=== PATIENT | female | born 1950 | race Caucasian/White ===

== ENCOUNTER → 2017-09-11 | Day surgery (SDC) | payer OTHER, MEDICARE ==
[~2017-09-11] VITALS: Ht 154.9 cm; Wt 98.9 kg
[~2017-09-11] MED LIST: ADVAIR 100-501 EACH INH; ADVAIR DISKU 11 UNIT INH; ALEVE220 MG PO; ASPIRIN CHILDRE81 MG PO; ASPIRIN EC81 M1 PO; BIOTIN5000 MC1 PO; CALCIUM600 M3 PO; CALTRATE 600600 MG PO; CHOLEST OFF450 MG PO; CHOLESTOFF PO; CHOLESTYRAMINE1 POW PO; CO Q-10300 MG PO; COQ10 IN OIL 101 SGL; COUMADIN 5 MG TA5 MG PO; DILTIAZEM 24HR240 MG PO; DILTIAZEM HCL240 MG PO; DILTIAZEM180 MG PO; DOCUSATE SODIU100 MG PO; FISH OIL 1,2001 EAC2 PO; LEVOTHYROXIN0.125 MG PO; LEVOTHYROXINE125 MCG PO; LOVAZA1 GM PO; MASON NATURAL2000 IU PO; MULTIVITAMIN1 TAB PO; NATURE S BLEND PO; OMEGA-3 1000 MG1 CAP PO; PERCOCET 325 MG1 TA2 PO; TURMERIC500 M2 PO; VITAMIN B-122500 MCG PO; VITAMIN D1000 IU PO
--- NOTE | 2017-09-11 11:50 | Operative Report ---
Operative/Inv Procedure Report Surgery Date: 09/11/17 Name of Procedure: Left partial mastectomy with wire localization and sentinel lymph node biopsy Pre-Operative Diagnosis: Left breast cancer Post-Operative Diagnosis: Same Estimated Blood Loss: scant Surgeon/Sea Captain: Bri Rodgers MD Anesthesia: laryngeal mask airway Specimens: [place] lymph node, lumpectomy, cranial margin, caudal margin, medial margin, lateral margin, deep margin, anterior margin Operative/Procedure Note Note: Patient status post a needle biopsy showing invasive breast cancer left breast. She is brought to the operating for definitive treatment. Preoperative wire localization and lymphoscintigraphy were performed and those films reviewed. She is brought to the operating room and placed supine on the table. Laryngeal mask airway was administered as well as 2 g of Ancef. 3 mL of methylene blue diluted with 2 mL of saline was injected in the retroareolar fashion. The left breast was prepped and draped in a sterile fashion using ChloraPrep. Local anesthesia 1% lidocaine mixed half percent Marcaine was given and the axilla was approached first. A transverse incision was made in the lower axilla. Clavipectoral fascia was incised and a hot lymph node was identified. This was excised and marked as sentinel lymph node. No other hot, blue, or palpable lymph nodes were identified in the axilla. Hemostasis was adequate and the fascia was closed using interrupted Vicryl sutures. Skin was closed using a running Biosyn subcutaneous color stitch. The breast was then approached. An inframammary incision was made in the medial aspect. The wire was brought into the incision and the area of concern was grasped using an Allis clamp. A lumpectomy was performed and marked for orientation using margin map. Intraoperative x-ray confirmed the presence of the clip in specimen. Additional margins were taken in the cranial, caudal, medial, lateral, deep, and skin positions. Hemostasis adequate and a 2 x 2 BioSorb Marker was fastened to the adjacent breast tissue using Maxon sutures. Deep tissue was approximated over the Marker and skin was closed using a running Biosyn subcuticular stitch. Surgical sterile dressings were applied and patient was transferred to the recovery room in satisfactory condition having tolerated the procedure well.
--- NOTE | 2017-09-12 12:14 | MAMMOGRAPHY REPORT ---
PROCEDURE: US GUIDANCE FOR BREAST PREOPERATIVE NEEDLE LOCALIZATION, LEFT MM POST NEEDLE LOCALIZATION SINGLE CC VIEW, LEFTBREAST. SPECIMEN RADIOGRAPHY. CLINICAL INFORMATION: Biopsy proved left breast carcinoma at .7-8 o'clock, 9 cm from the nipple. Preoperative needle localization is requested. COMPARISON: Prior studies done on 08/22/2017, 08/16/2017, and 08/15/2017. TECHNIQUE AND FINDINGS: The details of the procedure, as well as the risks, benefits, and alternatives to the procedure were explained to the patient in detail and all of her questions were answered, after which, written informed consent was obtained. Prior to the procedure, sonography revealed the indexed biopsy proved 0.9 cm maximum dimension, invasive ductal carcinoma at 7-8 o'clock, 9 cm from the nipple. A time-out was performed, the lesion intended for needle localization was targeted and the skin of the left breast was then prepped and draped in the usual sterile fashion. Using sonographic guidance, sterile technique and buffered 2 % lidocaine without epinephrine for local anesthesia, a 5 cm Kopan's needle was placed within the biopsy proved malignancy at 7-8 o'clock,within the left breast. The patient tolerated the procedure well. The single view mammogram further confirmed accurate placement of the wire within the intended mass. Previously placed tissue marker was also identified adjacent to the wire. The worksheet was appropriately labeled and was sent to the OR with the patient. Subsequently, following excision of the mass, the specimen radiography was performed which revealed target within the specimen with intact wire and the previously placed tissue marker within the mass. IMPRESSION: 1. Successful sonographic guided wire localization of the left breast biopsy proved invasive ductal carcinoma at 7-8 o'clock, 9 cm from the nipple. 2. Mammographic confirmation of accurate needle localization along with appropriate marking for presurgical roadmap with worksheet. 3. Final specimen radiograph confirming complete, adequate excision of the mass and removal of the previously placed tissue marker and intact wire. Results were called to Dr. Rodgers in the operating room at the time of imaging. The histology report is pending.
== END ==
LOC: STS 03:00 → CBW.IIU 07:00 → CBW.US 08:00
DX: C50.312 Malignant neoplasm of lower-inner quadrant of left female breast (principal); Z17.0 Estrogen receptor positive status [ER+]; I10 Essential (primary) hypertension; E07.9 Disorder of thyroid, unspecified
CPT/HCPCS: 76942; 77065-LT; C9728; J0690; J2001; J2250; Q9968

== ENCOUNTER 2018-04-18 09:15 | Observation (INO) | payer OTHER ==
[~2018-04-18] VITALS: Ht 154.9 cm; Wt 102.1 kg
--- NOTE | 2018-04-18 09:59 | RADIOLOGY REPORT ---
EXAMINATION: XR CHEST CLINICAL INFORMATION: Chest pain. COMPARISON: Chest done on 11/02/2016. TECHNIQUE: 2 views of the chest were obtained. FINDINGS: Both lungs are symmetrically expanded, appear clear. The cardiomediastinal silhouette is within normal limit. There is no pleural effusion present. The visualized upper abdomen is unremarkable. Multilevel degenerative spondylosis is seen in the spine. No significant change since prior study. IMPRESSION: No acute cardiopulmonary disease, unchanged since 11/02/2016.
[2018-04-18 10:02] LABS: ABSOLUTE BASOPHIL COUNT 0 /CUMM (0.0-0.2); ABSOLUTE EOSINOPHIL COUNT 0 /CUMM (0.0-0.7); ABSOLUTE GRANULOCYTE CT 11.2 /CUMM (1.4-6.5); ABSOLUTE LYMPH COUNT 0.8 /CUMM (1.2-3.4); ABSOLUTE MONOCYTE COUNT 0.4 /CUMM (0.10-0.60); BASOPHIL % 0.2 % (0.0-2.0); EOSINOPHIL % 0 % (0-5); GRANULOCYTE % 90.1 % (42.2-75.2); HEMATOCRIT 39.9 % (37-47); MEAN CORPUSCULAR HGB 33.2 PG (27.0-31.0); MEAN CORPUSCULAR HGB CONC 35.2 G/DL (33.0-37.0); MEAN CORPUSCULAR VOLUME 94.2 FL (81.0-99.0); MEAN PLATELET VOLUME 8.4 FL (7.4-10.4); PLATELET COUNT 280 /CUMM (130-400); RBC DISTRIBUTION WIDTH 12.8 % (11.5-14.5); RED BLOOD CELL CT 4.24 /CUMM (4.20-5.40); WHITE BLOOD CELL COUNT 12.4 /CUMM (4.8-10.8)
--- NOTE | 2018-04-18 11:25 | ED CARDIAC/CP/PALPITATIONS ---
History of Present Illness General Chief Complaint: Chest Pain Stated Complaint: CHEST PAIN Source: patient Exam Limitations: no limitations Vital Signs & Intake/Output Vital Signs & Intake/Output Vital Signs Date Time Temp Pulse Resp B/P B/P Pulse O2 O2 Flow FiO2 Mean Ox Delivery Rate 04/19 1209 62 178/84 04/19 1019 62 190/82 04/19 0800 97 Room Air 04/19 0755 63 162/88 04/19 0644 69 180/70 04/19 0559 97.6 64 20 180/80 97 Room Air 04/18 2248 98.7 64 18 146/64 94 Room Air 04/18 2109 Room Air 04/18 1908 65 178/76 04/18 1651 97.8 74 16 158/78 97 04/18 1610 72 17 194/68 99 Room Air 04/18 1442 69 18 172/72 99 Room Air 04/18 1321 98 Room Air 04/18 1320 58 17 218/72 04/18 1247 57 17 218/72 98 Room Air ED Intake and Output 04/19 0000 04/18 1200 Intake Total Output Total Balance Patient 225 lb 225 lb Weight Allergies Coded Allergies: Penicillins (STOMACH UPSET 09/10/17) codeine (PASSES OUT 09/10/17) Reconcile Medications Anastrozole 1 MG TABLET 1 TAB PO DAILY CANCER (Reported) Aspirin (Ecotrin*) 81 MG TABLET.DR 1 TAB PO DAILY HEART/BLOOD (Reported) Biotin 5,000 MCG TAB.SUBL 1 TAB PO DAILY SUPPLEMENT (Reported) Calcium (Elemental-Fr Calcarb) (Calcium) 600 MG CALCIUM (1,500 MG) TABLET 1 TAB PO DAILY SUPPLEMENT (Reported) Cyanocobalamin (Vitamin B-12) (Vitamin B-12) 2,500 MCG TAB.SUBL 1 TAB PO DAILY SUPPLEMENT (Reported) Diltiazem HCl (Diltiazem 24HR ER) 240 MG CAP.ER.24H 1 CAP PO DAILY HEART/BP ( Reported) diphenhydrAMINE HCl (Benadryl) 25 MG CAP 1 CAP PO QPM ALLERGIES (Reported) Fluticasone-Salmeterol (Advair 100-50 Diskus) 100 MCG-50 MCG/DOSE BLST.W.DEV 1 PUF INH BID ASTHMA (Reported) Levothyroxine Sodium 125 MCG TABLET 1 TAB PO DAILY THYROID (Reported) Loratadine (Claritin) 10 MG TABLET 1 TAB PO DAILY ALLERGIES (Reported) Methylprednisolone 4 MG TAB.DS.PK 1 TAB PO TAPER STEROID (Reported) [place]-3S/Dha/Epa/Fish Oil (Fish Oil 1,200 MG Softgel) 360-1,200MG CAPSULE 1 CAP PO DAILY SUPPLEMENT (Reported) Plant Stanol Julissa (Cholest Off) (Unknown Strength) TABLET (Unknown Dose) PO DAILY SUPPLEMENT (Reported) Turmeric Root Extract (Turmeric) 500 MG CAPSULE 2 CAP PO DAILY SUPPLEMENT ( Reported) Ubidecarenone (Co Q-10) 300 MG CAPSULE 1 CAP PO DAILY SUPPLEMENT (Reported) Triage Note: 67F REPORTS CHEST PRESSURE STARTING LAST NIGHT, WORSENING THIS AM. DENIES MITIGATING FACTORS. DENIES RADIATION. WAS STARTED ON METHYLPREDNISOLONE TABS ON AND HAD A SHOT IN DR CRAFT'S OFFICE SATURDAY (?STEROID). NOW FEELS PRESSURE LIKE PALPITATIONS AT TIMES, DENIES ROSARIO. HX ASTHMA. BP ELEVATED, HAS NOT TAKEN HTN MEDS TODAY Triage Nurses Notes Reviewed? yes Onset: Abrupt Duration: hour(s): Timing: recent history Quality/Severity: moderate Radiation: no radiation Activities at Onset: none Prior Chest Pain/Card Workup: no prior chest pain HPI: 67-year-old female comes into the emergency room with complaints of left-sided chest pain. Patient reports that the symptoms started last night. Patient reports the pain is pressure. Left-sided. Nonradiating. Denies any fever chills cough diaphoresis. Some associated shortness of breath. Comes in for further evaluation. (Hemal Bruno) Past History Travel History Traveled to [place] past 21 day No Medical History Any Pertinent Medical History? 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 No (Hemal Bruno) Review of Systems Review of Systems Constitutional: Reports: no symptoms. EENTM: Reports: no symptoms. Respiratory: Reports: see HPI. Cardiovascular: Reports: see HPI. GI: Reports: no symptoms. Genitourinary: Reports: no symptoms. Musculoskeletal: Reports: no symptoms. Skin: Reports: no symptoms. Neurological/Psychological: Reports: no symptoms. Hematologic/Endocrine: Reports: no symptoms. Immunologic/Allergic: Reports: no symptoms. All Other Systems: Reviewed and Negative (Hemal Bruno) Physical Exam Physical Exam General Appearance: well developed/nourished, no apparent distress, alert, awake Head: atraumatic, normal appearance Eyes: Bilateral: normal appearance. Ears, Nose, Throat: normal ENT inspection, hearing grossly normal Neck: normal inspection Respiratory: normal breath sounds, no respiratory distress Cardiovascular: regular rate/rhythm Back: normal inspection Extremities: normal inspection Neurologic/Psych: awake, alert, oriented x 3, normal gait Skin: intact, normal color Core Measures ACS in differential dx? Yes CVA/TIA Diagnosis No Sepsis Present: No Sepsis Focused Exam Completed? No (Hemal Bruno) Progress Differential Diagnosis: AMI, costochondritis, intracranial hemorrhage, musculoskeletal pain, myocarditis, pancreatitis, pericarditis, pneumonia, pneumothorax, pulmonary embolism, PUD/GERD Plan of Care: Orders Procedure Date/time Status CBC WITHOUT DIFFERENTIAL 04/20 0600 Active BASIC ELECTROLYTES PLUS BUN&CR 04/20 0600 Active LIPID PANEL 04/19 0600 Complete CBC WITHOUT DIFFERENTIAL 04/19 0600 Complete BASIC ELECTROLYTES PLUS BUN&CR 04/19 0600 Complete Lab Add-on Test 04/19 UNK Active MISSING MEDICATION FORM 04/19 UNK Active Heart Healthy Diet 04/18 D Active TROPONIN LEVEL 04/18 2100 Complete EKG 04/18 2100 Active Pathway - chart 04/18 1953 Active Vital Signs 04/18 1714 Active Teach/Educate 04/18 171 Active Pain Treatment and Response 04/18 1714 Active Nutritional Intake, Monitor 04/18 1714 Active Isolation 04/18 1714 Active Intake & Output 04/18 1714 Active Patient Care Conference 04/18 1714 Active Activity/Ambulation 04/18 1714 Active Pathway - chart 04/18 1449 Active Code Status 04/18 1449 Active ECHOCARDIOGRAM 04/18 1449 Active EKG 04/18 1345 Active Patient Data 04/[address] in observation 04/18 1328 Active Intake & Output 04/18 0923 Active THYROID STIMULATING HORMONE 04/18 0530 Complete FREE T4 04/18 0530 Complete Pathway - chart 04/18 UNK Active House Staff 04/18 UNK Active VTE Mechanical Prophylaxis 04/18 UNK Active Vital Signs 04/18 UNK Active MISSING MEDICATION FORM 04/18 UNK Active CASE MANAGEMENT CONSULT 04/18 UNK Active Current Medications Sig/Trent Start time Last Medication Dose Stop Time Status Admin Anastrozole 1 MG DAILY 04/19 0900 AC 04/19 (Arimidex) 1020 Aspirin Buffered 81 MG DAILY 04/19 0900 AC 04/19 (Ecotrin) 1020 Diltiazem HCl 240 MG DAILY 04/19 0900 AC 04/19 (Cardizem CD) 1020 Enoxaparin Sodium 40 MG DAILY 04/19 0900 AC 04/19 (Lovenox) 1021 Levothyroxine Sodium 0.125 MG DAILY AC 04/19 0811 AC 04/19 (Synthroid) 1020 Budesonide/ 2 PUF BID 04/18 2100 AC 04/19 Formoterol Fumarate 1021 (SYMBICORT) Acetaminophen 650 MG Q6P PRN 04/18 2000 AC 04/19 (Tylenol) 0759 Acetaminophen 1,000 MG Q6P PRN 04/18 2000 AC (Ofirmev) Losartan Potassium 50 MG DAILY 04/18 1615 AC 04/19 (Cozaar) 0644 Laboratory Tests 04/19/18 0604: Anion Gap 8, Estimated GFR > 60, BUN/Creatinine Ratio 36.3 H, Triglycerides 141 , Cholesterol 199, LDL Cholesterol, Calc 106, HDL Cholesterol 65 H, Cholesterol /HDL Ratio 3, CBC w Diff NO MAN DIFF REQ, RBC 3.88 L, MCV 94.8, MCH 32.8 H, MCHC 34.6, RDW 13.0, MPV 8.5, Gran % 79.2 H, Lymphocytes % 14.0 L, Monocytes % 5.9, Eosinophils % 0.6, Basophils % 0.3, Absolute Granulocytes 6.8 H, Absolute Lymphocytes 1.2, Absolute Monocytes 0.5, Absolute Eosinophils 0.1, Absolute Basophils 0 04/18/18 2050: Troponin I < 0.01 04/18/18 1430: Troponin I < 0.01 Diagnostic Imaging: Viewed by Me: Radiology Read. Discussed w/RAD: Radiology Read. Radiology Impression: PATIENT: JUANITA GARAY PRESENT AGE: 67 PATIENT ACCOUNT NO: [id number] : 49 LOCATION: [facility] ORDERING PHYSICIAN: Dillon CHOWDARY SERVICE DATE: 04/18/18 EXAM TYPE: RAD - XRY- CHEST XRAY, TWO VIEWS EXAMINATION: XR CHEST CLINICAL INFORMATION: Chest pain. COMPARISON: Chest done on 11/02/2016. TECHNIQUE: 2 views of the chest were obtained. FINDINGS: Both lungs are symmetrically expanded, appear clear. The cardiomediastinal silhouette is within normal limit. There is no pleural effusion present. The visualized upper abdomen is unremarkable. Multilevel degenerative spondylosis is seen in the spine. No significant change since prior study. IMPRESSION: No acute cardiopulmonary disease, unchanged since 11/02/2016. DICTATED BY: Nakul Cleaning MD DATE/TIME DICTATED:04/18/18952 STERILE PREPARATION TECHNICIAN:[place] DATE/TIME TRANSCRIBED:04/18/18952 CONFIDENTIAL, DO NOT COPY WITHOUT APPROPRIATE AUTHORIZATION. <Electronically signed in Other Vendor System> SIGNED BY: Nakul Cleaning MD 04/18/18958 Initial ED EKG: normal sinus rhythm, rate (66), nonspecific ST T wave chg Repeat EKG: unchanged (Hemal Bruno) Departure Departure Disposition: STILL A PATIENT Condition: Stable Clinical Impression Primary Impression: Hypertensive urgency Secondary Impressions: Chest pain Referrals: Eva LLANOS,Deandra (PCP/Family) Departure Forms: Customer Survey General Discharge Information Admission Note Spoke With: Katarzyna Enriquez MD Documentation of Exam: Documentation of any treatments & extenuating circumstances including Concerns Regarding Discharge (functional status, medication knowledge or non-compliance, living conditions, etc.) that warrant an admission rather than observation: Patient will require IV blood pressure control. Repeat troponins. Cardiac telemetry. Cardiology consultation. Actively still having chest pressure in the emergency room. Not safe for discharge. (Hemal Bruno) PA/FITNESS SALES CONSULTANT Co-Sign Statement Statement: ED Attending supervision documentation- x I saw and evaluated the patient. I have also reviewed all the pertinent lab results and diagnostic results. I agree with the findings and the plan of care as documented in the PA's/FITNESS SALES CONSULTANT's documentation. Due to patient's history and physical exam admission for further evaluation is necessary. At time of admission Ms Garay is a hemodynamically stable no acute cardio pulmonary distress. Alert and oriented 4. [] I have reviewed the ED Record and agree with the PA's/FITNESS SALES CONSULTANT's documentation. [] Additions or exceptions (if any) to the PAs/FITNESS SALES CONSULTANT's note and plan are summarized below: [] (Martinez LLANOS,[place]) Critical Care Note Critical Care Note Critical Care Time: non-applicable (Hemal Bruno)
[2018-04-18] MEDS ORDERED: CLARITIN10 M1 PO (11:32)
[2018-04-18] MEDS ORDERED: BENADRYL25 MG PO (11:32)
[2018-04-18] MEDS ORDERED: METHYLPREDNISOLO4 M2 PO (11:32)
[2018-04-18] MEDS ORDERED: ANASTROZOLE1 M1 PO (11:33)
--- NOTE | 2018-04-18 13:52 | History & Physical ---
[facility] [place] [place] 04/18/18 1343: General Information and HPI MD Statement: I have seen and personally examined JUANITA GARAY and documented this H&P. The patient is a 67 year old F who presented with a patient stated chief complaint of chest pressure since this morning []. Source of Information: patient, old records Exam Limitations: no limitations History of Present Illness: 67-year-old, obese female, non-smoker with past medical history of hypertension, hypercholesterolemia, COPD, hypothyroidism, asthma, gastric bypass, total bilateral knee replacement, cholecystectomy, left breast cancer status post lobectomy (Aug, 2017) and radiation therapy now on anastrozole came to ED with chief complaint of chest pressure since this morning. Patient reported that she was in her usual state of health since this morning when she suddenly woke up with chest pressure. She described chest pressure was in the center as somebody is sitting on her chest, nonradiating, no aggravating or relieving factor and continuous. Patient reported that she had similar episode last night that resolved by itself and couple of minutes. But this morning this chest pressure did not resolve and that is why she came to ED. Patient denied palpitation, sweating, nausea, shortness of breath, vomiting, syncope, lightheadedness, headache, numbness, tingling, tick bite, runny nose, trauma to chest, abdominal pain and dysuria. Patient reported that last Saturday she went to her primary care physician's office for rash on the ankles. Her primary care physician prescribed tapering dose of steroids with creams. Patient reported that her rash has been improving. Patient reported that she is taking her medications regularly. She took her antihypertensive medication last night. She is not checking her blood pressure regularly at home. She never followed any spectrographer in the past. She never had any echocardiogram in the past. Patient reported that she is drinking every day but she never required alcohol to keep herself awake. Family history: -She reported that her father had [place] in 40s and he in his 50s. -She also reported family history of breast cancers on her paternal side. ED course: Vitals: Temperature 98.4, pulse 64, respiratory rate 18, blood pressure 218/76, oxygen saturation 98% on room air. Labs: WBC count 12.4, hemoglobin 14.1, hematocrit 39.9, platelet count 280, sodium 141, potassium 4.1, BUN 25, creatinine 0.9, anion gap 12, BUN/creatinine ratio 27.8, glucose 139, calcium 9.4, AST 17, ALT 22, alkaline phosphatase 63, troponin less than 0.01, albumin 4.5, globulin 3.0. Patient received 1 push of 10 mg hydralazine IV and one push of labetalol 10 mg IV. Allergies/Medications Allergies: Coded Allergies: Penicillins (STOMACH UPSET 09/10/17) codeine (PASSES OUT 09/10/17) Home Med list Anastrozole 1 MG TABLET 1 TAB PO DAILY CANCER (Reported) Aspirin (Ecotrin*) 81 MG TABLET.DR 1 TAB PO DAILY HEART/BLOOD (Reported) Biotin 5,000 MCG TAB.SUBL 1 TAB PO DAILY SUPPLEMENT (Reported) Calcium (Elemental-Fr Calcarb) (Calcium) 600 MG CALCIUM (1,500 MG) TABLET 1 TAB PO DAILY SUPPLEMENT (Reported) Cyanocobalamin (Vitamin B-12) (Vitamin B-12) 2,500 MCG TAB.SUBL 1 TAB PO DAILY SUPPLEMENT (Reported) Diltiazem HCl (Diltiazem 24HR ER) 240 MG CAP.ER.24H 1 CAP PO DAILY HEART/BP ( Reported) diphenhydrAMINE HCl (Benadryl) 25 MG CAP 1 CAP PO QPM ALLERGIES (Reported) Fluticasone-Salmeterol (Advair 100-50 Diskus) 100 MCG-50 MCG/DOSE BLST.W.DEV 1 PUF INH BID ASTHMA (Reported) Levothyroxine Sodium 125 MCG TABLET 1 TAB PO DAILY THYROID (Reported) Loratadine (Claritin) 10 MG TABLET 1 TAB PO DAILY ALLERGIES (Reported) Methylprednisolone 4 MG TAB.DS.PK 1 TAB PO TAPER STEROID (Reported) [place]-3S/Dha/Epa/Fish Oil (Fish Oil 1,200 MG Softgel) 360-1,200MG CAPSULE 1 CAP PO DAILY SUPPLEMENT (Reported) Plant Stanol Julissa (Cholest Off) (Unknown Strength) TABLET (Unknown Dose) PO DAILY SUPPLEMENT (Reported) Turmeric Root Extract (Turmeric) 500 MG CAPSULE 2 CAP PO DAILY SUPPLEMENT ( Reported) Ubidecarenone (Co Q-10) 300 MG CAPSULE 1 CAP PO DAILY SUPPLEMENT (Reported) Past History Travel History Traveled to [place] past 21 day No Medical History Neurological: NONE Cardiovascular: hypertension, HEART MURMER Respiratory: asthma Gastrointestinal: GASTRIC BYPASS Hepatic: NONE Renal: NONE Musculoskeletal: RKNEE REPLACEMENT Psychiatric: NONE Endocrine: hypothyroidism Blood Disorders: NONE Cancer(s): 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 EENTM: Reports: no symptoms. Cardiovascular: Reports: chest pain. Denies: palpitations, syncope. Respiratory: Denies: cough, short of breath, sputum production, wheezing. GI: Denies: abdominal pain, constipation, diarrhea, nausea, vomiting. Genitourinary: Denies: discharge, dysuria, frequency. Musculoskeletal: Reports: no symptoms. Skin: Reports: see HPI, rash. Neurological/Psychological: Reports: no symptoms. Exam & Diagnostic Data Last 24 Hrs of Vital Signs/I&O Vital Signs Date Time Temp Pulse Resp B/P B/P Pulse O2 O2 Flow FiO2 Mean Ox Delivery Rate 04/18 1442 69 18 172/72 99 Room Air 04/18 1321 98 Room Air 04/18 1320 58 17 218/72 04/18 1247 57 17 218/72 98 Room Air 04/18 1158 64 18 214/75 04/18 1158 64 18 218/76 98 Room Air 04/18 0921 98.4 89 18 189/88 98 Room Air Intake & Output 04/18 1600 04/18 0800 04/18 0000 Intake Total Output Total Balance Patient 225 lb Weight Physical Exam General Appearance Alert, Oriented X3, Cooperative Skin erythema on lateral side of her heels. Skin Temp/Moisture Exam: Warm/Dry Sepsis Skin Exam (color): Normal for Ethnicity HEENT Atraumatic, PERRLA, EOMI Neck Supple Cardiovascular Normal S1, Normal S2, systolic murmer at aortic area Lungs Clear to Auscultation Abdomen Soft, No Tenderness Neurological Normal Speech, Strength at 5/5 X4 Ext, Normal Tone Extremities No Edema Assessment/Plan Assessment: 67-year-old, obese female with past medical history of hypertension, hypercholesterolemia, COPD, hypothyroidism, asthma, gastric bypass, total bilateral knee replacement, cholecystectomy, left breast cancer status post lobectomy (Aug, 2017) and radiation therapy now on anastrozole came to ED with chief complaint of chest pressure since this morning. Seeing the patient on telemetry floor for following problems. Chest pain: -Ruling out ACS as patient is on high risk considering her positive family history, recent radiation therapy and uncontrolled hypertension. -Serial EKGs and troponins to rule out any ischemic cardiac injury. -Continue aspirin -Continue nitroglycerin paste for chest pain as needed -Cardiology consult -Echocardiogram to look for any structural heart disease and left ventricular function. Uncontrolled hypertension: -On admission patient had 218/76 blood pressure and she never checked her blood pressure at home. She does not know about her baseline blood pressure. -Continue diltiazem 240 mg daily -Monitor her blood pressure -Patient blood pressure remain elevated with we will consider adding other medication. Leukocytosis: -Possibly due to steroid use recently. -Follow-up WBC count, we will observe for any signs of infection. History of hypothyroidism: -Continue levothyroxine 125 mcg per day -Check her TSH and free T4 History of recent erythematous rash: -Bilateral ankles -Continue her steroid ointment. History of left breast cancer status post lobectomy and radiation: -Continue anastrozole History of asthma: -TRC nebulization as needed -Continue her Advair inhaler DVT prophylaxis: Mechanical and subcutaneous Lovenox CODE STATUS: Full code As Ranked By This Provider Problem List: 1. Chest pain 2. Hypertensive urgency Core Measures/Misc (04/14) Acute Coronary Syndrome ACS Diagnosis: No Congestive Heart Failure Congestive Heart Failure Diagnosis No Cerebrovascular Accident CVA/TIA Diagnosis: No VTE (View Protocol) VTE Risk Factors Age>40 No Mechanical VTE Prophylaxis d/t N/A MechProphylax Ordered No VTE Pharm Prophylaxis d/t NA PharmProphylax ordered Sepsis (View protocol) Sepsis Present: No If YES complete Sepsis Event Note If YES complete Sepsis Event Note John Luna 04/18/18 1400: Past Family/Social History Family History Relations & Conditions if any FATHER (CAD [place] at 40 years). FHx: breast neoplasm Exam & Diagnostic Data Last 24 Hrs of Vital Signs/I&O Vital Signs Date Time Temp Pulse Resp B/P B/P Pulse O2 O2 Flow FiO2 Mean Ox Delivery Rate 04/18 2248 98.7 64 18 146/64 94 Room Air 04/18 2109 Room Air 04/18 1908 65 178/76 04/18 1651 97.8 74 16 158/78 97 04/18 1610 72 17 194/68 99 Room Air 04/18 1442 69 18 172/72 99 Room Air 04/18 1321 98 Room Air 04/18 1320 58 17 218/72 04/18 1247 57 17 218/72 98 Room Air 04/18 1158 64 18 214/75 04/18 1158 64 18 218/76 98 Room Air 04/18 0921 98.4 89 18 189/88 98 Room Air Intake & Output 04/18 1600 04/18 0800 04/18 0000 Intake Total Output Total Balance Patient 225 lb Weight Core Measures/Misc (04/14) Sepsis (View protocol) If YES complete Sepsis Event Note If YES complete Sepsis Event Note Resident Review Statement Resident Statement: examined this patient, discussed with automotive internet sales consultant, agreed with automotive internet sales consultant, reviewed images, amended to note Other Findings: This is a 67 years old lady with past medical history of hypertension hyperlipidemia COPD hypothyroidism breast cancer status post surgery and radiotherapy in August 2017 who is presenting with 1 day history of chest pressure. The chest pressure is centrally located not associated with shortness of breath or palpitation and denies any radiation of pain to the upper limb both of the jaw. Reports this is the first episode and denies any exacerbating or relieving factors. Patient was recently put on steroid taper due to a skin condition in the feet and received a shot at her PCP who which we think is a steroid as well. She takes ERCOM CD for her hypertension reports adhering to medication though does not check blood pressure regularly at home. Vital signs on arrival the patient was afebrile 98.4 heart rate of 89 blood pressure high 189/89 and increased to 218/72 saturating 98% on room air Physical examination: Alert oriented to time place and person seated comfortably on the bed not in any acute distress and daughter in the room. Cardiovascular: Normal S1-S2 regular rate and rhythm there is a 2/6 systolic murmur more prominent in the aortic area, apex at the fifth intercostal space. Lungs: Clear lungs bilateral Head and neck: No raised JVD wet mucous membranes Abdomen: ObeSE moving with respiration normal breath sounds Extremities: No cyanosis edema clubbing Labs slight leukocytosis 12,400 with 94% granulocytes(this can be reaction to the steroids she is taking:) normal renal function slightly high sugar 139 with negative troponin at 0.01 CXR no acute pathology EKG normal sinus rhythm regular normal axis no new ST-T wave changes QTC 490 Assessment and plan 67 years old presenting with chest pressure and significant hypertension blood pressure highest to 218/72 requiring 2 rounds of IV blood pressure medication. The pain is nonradiating and not associated with dizziness lightheadedness palpitation or shortness of breath. Hypertensive urgency Rule out ACS Possible aortic stenosis Admit patient to the telemetry floor Continuous nurse monitoring Vital signs every shift Serial troponin and EKG 3 sets Echocardiogram Cardiology consult prior to discharge (Contacted Dr Israel to see the patient) Restart blood pressure medication Cardizem 240 daily Lorsatan 50 mg daily and titrate up to adequate blood pressure response Breast cancer: Continue antihormone anastrozole COPD: Continue Advair and TRC nebs Hypothyroidism: Continue levothyroxine 125 mcg Patient is full code Heart health diet Pain pathway Jorg eAlberto LLANOS,Kendra 04/18/18 1515: Core Measures/Misc (04/14) Sepsis (View protocol) If YES complete Sepsis Event Note If YES complete Sepsis Event Note Attending MD Review Statement Attending Statement Attending MD Statement: examined this patient, discuss w/resident/PA/SHIPPING SERVICES SALES REPRESENTATIVE, agreed w/resident/PA/SHIPPING SERVICES SALES REPRESENTATIVE, reviewed EMR data (avail), discussed with nursing, discussed with case mgmt, reviewed images Attending Assessment/Plan: 67-year-old female past medical history of breast cancer status post lumpectomy and partial mastectomy with radiation on anastrozole, hypertension, COPD and hyperlipidemia. She is here with complaints of chest pressure and a hypertensive emergency. When she presented her blood pressure was 218/72 in the ER and she got a dose of labetalol and hydralazine. Will bring her into telemetry, rule her out with serial enzymes and EKG, continue her usual antihypertensive medications including aspirin, Cardizem will get an echocardiogram and cardiology consult.
--- NOTE | 2018-04-18 15:16 | Admission Certification ---
Admission Certification Certification Statement - As attending physician, I certify that at the time of - admission, based on clinical presentation, severity of - symptoms, need for further diagnostic testing and - therapeutic interventions, and risk of adverse outcomes - without in-hospital treatment, in my clinical assessment, - this patient requires an acute hospital stay for a minimum - of two nights or longer. I have also considered psychsocial - factors such as support system, advanced age, financial - issues, cognitive issues, and failed out-patient treatments, - past re-admission history, safety of patient, and lack of - compliance as applicable. Specific rationale supporting this admission is: Hypertensive emergency, chest pain
[2018-04-18 16:51] VITALS: BP 158/78
[2018-04-18 22:48] VITALS: BP 146/64
[2018-04-19] VITALS (7 sets, daily range): BP systolic 150–194; BP diastolic 62–88
--- NOTE | 2018-04-19 05:11 | PN- Housestaff ---
John Luna 04/19/18 0458: Subjective Follow-up For: Hypotensive URGENCY Chest pressure Complaints: no complaints Tele-Events Since Last Visit: Sinus bradycardia and sinus rhythm 58-61 beats per minutes no overnight events Subjective: Review the patient lying comfortably on the bed not in acute distress. Patient reports to have slept very well. The minor chest pressure she experienced on presentation has completely resolved. Patient blood pressure this morning systolic highest 180 given her dose of losartan early. Review of Systems Constitutional: Denies: chills, fever. Cardiovascular: Denies: chest pain, palpitations. Respiratory: Denies: cough, short of breath. Comments: All other systems reviewed and are negative Objective Last 24 Hrs of Vital Signs/I&O Vital Signs Date Time Temp Pulse Resp B/P B/P Pulse O2 O2 Flow FiO2 Mean Ox Delivery Rate 04/18 2248 98.7 64 18 146/64 94 Room Air 04/18 2109 Room Air 04/18 1908 65 178/76 04/18 1651 97.8 74 16 158/78 97 04/18 1610 72 17 194/68 99 Room Air 04/18 1442 69 18 172/72 99 Room Air 04/18 1321 98 Room Air 04/18 1320 58 17 218/72 04/18 1247 57 17 218/72 98 Room Air 04/18 1158 64 18 214/75 04/18 1158 64 18 218/76 98 Room Air 04/18 0921 98.4 89 18 189/88 98 Room Air Intake & Output 04/19 0800 04/19 0000 04/18 1600 Intake Total Output Total Balance Patient 225 lb 225 lb Weight Physical Exam General Appearance: Alert, Oriented X3, Cooperative, No Acute Distress Skin: No Breakdown Skin Temp/Moisture Exam: Warm/Dry Sepsis Skin Exam (color): Normal for Ethnicity HEENT: Atraumatic, Mucous Membr. moist/pink Neck: Supple, No JVD Cardiovascular: Regular Rate, Normal S1, Normal S2, systolic murmur Lungs: Clear to Auscultation Abdomen: Normal Bowel Sounds, Soft Current Medications: Current Medications Sig/Trent Start time Last Medication Dose Route Stop Time Status Admin Acetaminophen 650 MG Q6P PRN 04/18 2000 AC PO Acetaminophen 1,000 MG Q6P PRN 04/18 2000 AC IV Anastrozole 1 MG DAILY 04/19 900 AC PO Aspirin 0 .STK-MED ONE 04/18 1337 DC PO Aspirin 325 MG ONCE ONE 04/18 1330 DC 04/18 PO 04/18 1331 1348 Aspirin Buffered 81 MG DAILY 04/19 900 AC PO Budesonide/ 1 PUF BID 04/18 2100 DC Formoterol Fumarate INH Budesonide/ 2 PUF BID 04/18 2100 AC 04/18 Formoterol Fumarate INH 6 Diltiazem HCl 240 MG DAILY 04/19 09 AC PO Enoxaparin Sodium 40 MG DAILY 04/19 900 AC SC Hydralazine HCl 10 MG ONCE ONE 04/18 1315 DC 04/18 IV 04/18 1316 1320 Hydralazine HCl 0 .STK-MED ONE 04/18 1313 DC .ROUTE Labetalol HCl 0 .STK-MED ONE 04/18 1155 DC IV Labetalol HCl 10 MG ONCE ONE 04/18 1145 DC 04/18 IV 04/18 1146 1158 Levothyroxine Sodium 0.125 MG DAILY 04/19 09 AC PO Losartan Potassium 50 MG DAILY 04/18 1615 AC 04/18 PO 1908 Last 24 Hrs of Lab/Lorne Results Last 24 Hrs of Labs/Mics: Laboratory Tests 04/18/18 2050: Troponin I < 0.01 04/18/18 1430: Troponin I < 0.01 04/18/18 0930: D-Dimer High Sensitivty < 200 04/18/18 0530: Anion Gap 12, Estimated GFR > 60, BUN/Creatinine Ratio 27.8 H, Glucose 139 H, Calcium 9.4, Total Bilirubin 0.4, AST 17, ALT 22, Alkaline Phosphatase 63, Troponin I < 0.01, Total Protein 7.5, Albumin 4.5, Globulin 3.0, Albumin/ Globulin Ratio 1.5, CBC w Diff MAN DIFF ORDERED, RBC 4.24, MCV 94.2, MCH 33.2 H , MCHC 35.2, RDW 12.8, MPV 8.4, Gran % 90.1 H, Lymphocytes % 6.6 L, Monocytes % 3.1, Eosinophils % 0, Basophils % 0.2, Absolute Granulocytes 11.2 H, Absolute Lymphocytes 0.8 L, Absolute Monocytes 0.4, Absolute Eosinophils 0, Absolute Basophils 0, Platelet Estimate VERIFIED BY SMEAR, Normocytic RBCs VERIFIED, Normochromic RBCs VERIFIED Assessment/Plan Assessment: 67 years old presenting with chest pressure and significant hypertension blood pressure highest to 218/72 requiring 2 rounds of IV blood pressure medication. The pain is nonradiating and not associated with dizziness lightheadedness palpitation or shortness of breath. Patient is on one blood pressure medication and reports to be adherent. Hypertensive urgency On presentation blood pressure highest 218/72 received 2 rounds of IV blood pressure medications. Initial and subsequent three troponis and EKG were negative Patient started on Lorsatan 50mg daily Continue to monitor BP and titrate Lorsatn for better control ACS rulled out Systolic murmur Patient has a systolic murmur more pronounced the aortic area most likely out stenosis. We have ordered an echocardiogram and also called cardiology consult. Follow-up echocardiograms grafts and a cardio recommendations. Hypothyroidism Continue levothyroxine at 125 g daily Follow-up thyroid functions Problem List: 1. Chest pain 2. Hypertensive urgency Pain Ratin Pain Location: nONE Pain Goal: Remain pain free Pain Plan: PRN pain meds Tomorrow's Labs & Rationales: None DVT/Prophylaxis: pharmacological Jordana LLANOS,Amir 04/19/18 1517: Attending MD Review Statement Attending Statement Attending MD Statement: examined this patient, discuss w/resident/PA/COPY LATHE TENDER, agreed w/resident/PA/COPY LATHE TENDER, reviewed EMR data (avail), discussed with nursing Attending Assessment/Plan: Pt was seen, chart reviewed. Agree with optimal BP control. --trop x 3 negatives --if BP remains elevated, will need cardiac consult --rest of the plan as per resident's note
[2018-04-19 08:36] LABS: ABSOLUTE BASOPHIL COUNT 0 /CUMM (0.0-0.2); ABSOLUTE EOSINOPHIL COUNT 0.1 /CUMM (0.0-0.7); ABSOLUTE GRANULOCYTE CT 6.8 /CUMM (1.4-6.5); ABSOLUTE LYMPH COUNT 1.2 /CUMM (1.2-3.4); ABSOLUTE MONOCYTE COUNT 0.5 /CUMM (0.10-0.60); BASOPHIL % 0.3 % (0.0-2.0); EOSINOPHIL % 0.6 % (0-5); GRANULOCYTE % 79.2 % (42.2-75.2); HEMATOCRIT 36.8 % (37-47); MEAN CORPUSCULAR HGB 32.8 PG (27.0-31.0); MEAN CORPUSCULAR HGB CONC 34.6 G/DL (33.0-37.0); MEAN CORPUSCULAR VOLUME 94.8 FL (81.0-99.0); MEAN PLATELET VOLUME 8.5 FL (7.4-10.4); PLATELET COUNT 221 /CUMM (130-400); RED BLOOD CELL CT 3.88 /CUMM (4.20-5.40); WHITE BLOOD CELL COUNT 8.6 /CUMM (4.8-10.8)
--- NOTE | 2018-04-19 15:32 | Cons- Cardiology ---
General Information and HPI Consulting Request Date of Consult: 04/19/18 Requested By: Katarzyna Enriquez MD Reason for Consult: Chest pain History of Present Illness: The patient is a 67-year-old female with history of hypertension, hyperlipidemia , hypothyroidism, gastric bypass, and total knee replacement. She presents with complaint of chest discomfort. She was feeling well until the morning of admission when she awoke with chest pressure. The chest pressure was substernal and was moderate in severity. There is no radiation. She had a similar episode last night which resolved within a few minutes, however this morning the chest discomfort did not resolve, and she therefore presented to the emergency department. No palpitations. No shortness of breath. No syncope. No lightheadedness or dizziness. No nausea or vomiting. No diaphoresis. She recently presented to her primary care physician for a rash on her ankles, and she was treated with a steroid cream. Allergies/Medications Allergies: Coded Allergies: Penicillins (STOMACH UPSET 09/10/17) codeine (PASSES OUT 09/10/17) Home Med List: Anastrozole 1 MG TABLET 1 TAB PO DAILY CANCER (Reported) Aspirin (Ecotrin*) 81 MG TABLET.DR 1 TAB PO DAILY HEART/BLOOD (Reported) Biotin 5,000 MCG TAB.SUBL 1 TAB PO DAILY SUPPLEMENT (Reported) Calcium (Elemental-Fr Calcarb) (Calcium) 600 MG CALCIUM (1,500 MG) TABLET 1 TAB PO DAILY SUPPLEMENT (Reported) Cyanocobalamin (Vitamin B-12) (Vitamin B-12) 2,500 MCG TAB.SUBL 1 TAB PO DAILY SUPPLEMENT (Reported) Diltiazem HCl (Diltiazem 24HR ER) 240 MG CAP.ER.24H 1 CAP PO DAILY HEART/BP ( Reported) diphenhydrAMINE HCl (Benadryl) 25 MG CAP 1 CAP PO QPM ALLERGIES (Reported) Fluticasone-Salmeterol (Advair 100-50 Diskus) 100 MCG-50 MCG/DOSE BLST.W.DEV 1 PUF INH BID ASTHMA (Reported) Levothyroxine Sodium 125 MCG TABLET 1 TAB PO DAILY THYROID (Reported) Loratadine (Claritin) 10 MG TABLET 1 TAB PO DAILY ALLERGIES (Reported) Losartan (Cozaar) 100 MG TABLET 1 TAB PO DAILY BLOOD PRESSURE Take one tab daily [place]-3S/Dha/Epa/Fish Oil (Fish Oil 1,200 MG Softgel) 360-1,200MG CAPSULE 1 CAP PO DAILY SUPPLEMENT (Reported) Plant Stanol Julissa (Cholest Off) (Unknown Strength) TABLET (Unknown Dose) PO DAILY SUPPLEMENT (Reported) Turmeric Root Extract (Turmeric) 500 MG CAPSULE 2 CAP PO DAILY SUPPLEMENT ( Reported) Ubidecarenone (Co Q-10) 300 MG CAPSULE 1 CAP PO DAILY SUPPLEMENT (Reported) Review of Systems Review of Systems: No tremor. No melena. No fever. No chills. All other systems were reviewed, and were noted to be negative. 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 FHx: breast neoplasm Psychosocial History Services at Home: None Smoking Status: Never Smoked Exam & Diagnostic Data Vital Signs and I&O Vital Signs Date Time Temp Pulse Resp B/P B/P Pulse O2 O2 Flow FiO2 Mean Ox Delivery Rate 04/18 1442 69 18 172/72 99 Room Air 04/18 1321 98 Room Air 04/18 1320 58 17 218/72 04/18 1247 57 17 218/72 98 Room Air 04/18 1158 64 18 214/75 04/18 1158 64 18 218/76 98 Room Air 04/18 0921 98.4 89 18 189/88 98 Room Air Labs/[place] Results: 04/18/18 2050: Troponin I < 0.01 04/18/18 1430: Troponin I < 0.01 04/18/18 0930: D-Dimer High Sensitivty < 200 04/18/18 0530: Anion Gap 12, Estimated GFR > 60, BUN/Creatinine Ratio 27.8 H, Glucose 139 H, Calcium 9.4, Total Bilirubin 0.4, AST 17, ALT 22, Alkaline Phosphatase 63, Troponin I < 0.01, Total Protein 7.5, Albumin 4.5, Globulin 3.0, Albumin/ Globulin Ratio 1.5, CBC w Diff MAN DIFF ORDERED, RBC 4.24, MCV 94.2, MCH 33.2 H , MCHC 35.2, RDW 12.8, MPV 8.4, Gran % 90.1 H, Lymphocytes % 6.6 L, Monocytes % 3.1, Eosinophils % 0, Basophils % 0.2, Absolute Granulocytes 11.2 H, Absolute Lymphocytes 0.8 L, Absolute Monocytes 0.4, Absolute Eosinophils 0, Absolute Basophils 0, Platelet Estimate VERIFIED BY SMEAR, Normocytic RBCs VERIFIED, Normochromic RBCs VERIFIED Diagnostic Data EKG Results EKG tracings independently reviewed, and reveals normal sinus rhythm CXR Results No acute cardiopulmonary disease, unchanged since 11/02/2016. Assessment/Plan Assessment/Plan 1. Chest pain, ruled out for myocardial infarction 2. Normal LV systolic function with mild aortic stenosis on echo 3. Hypertensive urgency, with blood pressure improving Plan: * Would give additional 50 mg of losartan now, and increase losartan to 100 mg daily * Continue diltiazem * Aspirin 81 mg daily * Would discharged tonight if systolic blood pressure is 155 or less * Follow-up with me Saturday for further titration of blood pressure medications * Stress testing to be arranged as an outpatient Consult Acknowledgment - Thank you for your consult request.
--- NOTE | 2018-04-19 16:03 | ECHOCARDIOGRAM REPORT ---
JUANITA GARAY Age: 67 : 1950 Gender: F Exam Date: 04/19/2018 09:22 Exam Location: [address] Ht (in): 61 Wt (lb): 225 BSA: 2.16 BP: 162 / 88 Ordering Physician: John Luna MD Referring Physician: John Luna MD Technologist: Radha Camarena [facility] Room Number: 179-1 Indications: Hypertensive heart disease without heart failure Rhythm: Sinus Technical Quality: FINDINGS Left Ventricle Normal size left ventricle. Asymmetric left ventricular hypertrophy. Abnormal relaxation filling pattern of the left ventricle for age (stage 1 diastolic dysfunction). No obvious regional wall motion abnormalities. Left ventricular ejection fraction is estimated at >55 %. Right Ventricle Normal right ventricular size and function. Right Atrium Normal right atrial size. Left Atrium Mild left atrial dilatation. Mitral Valve Moderate mitral annular calcification. Mitral valve thickened. Mild mitral regurgitation. Aortic Valve Aortic valve thickened. Mild aortic stenosis. Tricuspid Valve Tricuspid valve not well visualized, grossly normal. Mild tricuspid regurgitation. Pulmonic Valve Pulmonic valve not well visualized, grossly normal. Trace pulmonic regurgitation. Pericardium No pericardial effusion. Great Vessels Normal size aortic root. CONCLUSIONS Normal size left ventricle. Asymmetric left ventricular hypertrophy. Abnormal relaxation filling pattern of the left ventricle for age (stage 1 diastolic dysfunction). No obvious regional wall motion abnormalities. Left ventricular ejection fraction is estimated at >55 %. Mild left atrial dilatation. Mild mitral regurgitation. Mild aortic stenosis. Mild tricuspid regurgitation. Trace pulmonic regurgitation. Jake Shahid M.D. (Electronically Signed) Final Date: 19 April 2018 16:01 MEASUREMENTS (Male / Female) Normal Values 2D ECHO LV Diastolic Diameter PLAX 3.5 cm 4.2 - 5.9 / 3.9 - 5.3 cm LV Systolic Diameter PLAX 2.4 cm 2.1 - 4.0 cm LV Fractional Shortening PLAX 31.9 % 25 - 46 % LV Ejection Fraction 2D Teich 61.1 % IVS Diastolic Thickness 1.5 cm LVPW Diastolic Thickness 1.1 cm LV Relative Wall Thickness 0.7 LVOT Diameter 2.0 cm Aortic Root Diameter 2.4 cm LA Systolic Diameter LX 4.5 cm 3.0 - 4.0 / 2.7 - 3.8 cm LA Volume 42.0 cm 18 - 58 / 22 - 52 cm DOPPLER AV Peak Velocity 260.5 cm/s AV Peak Gradient 27.1 mmHg AV Mean Velocity 177.5 cm/s AV Mean Gradient 14.0 mmHg AV Velocity Time Integral 57.1 cm LVOT Peak Velocity 102.8 cm/s LVOT Peak Gradient 4.2 mmHg LVOT Mean Velocity 95.0 cm/s LVOT Mean Gradient 4.0 mmHg LVOT Velocity Time Integral 32.3 cm LVOT Stroke Volume 101.5 cm AV Area Cont Eq vti 1.8 cm AV Area Cont Eq pk 1.2 cm Mitral E Point Velocity 74.0 cm/s Mitral A Point Velocity 119.0 cm/s Mitral E to A Ratio 0.6 MV Deceleration Time 268.0 ms MR Peak Velocity 121.0 cm/s MR Peak Gradient 5.9 mmHg TV Peak Velocity 198.7 cm/s PV Peak Velocity 111.0 cm/s PV Peak Gradient 4.9 mmHg LV E' Lateral Velocity 11.4 cm/s Mitral E to LV E' Lateral Ratio 6.5 LV E' Septal Velocity 4.1 cm/s Mitral E to LV E' Septal Ratio 18.1
[2018-04-19] MEDS ORDERED: COZAAR100 M1 PO (17:41)
--- NOTE | 2018-04-19 17:44 | Patient Discharge Instructions ---
Discharge Instructions General Discharge Information You had these procedures: ECHO Watch for these problems: If you have any worsening chest pain, shortness of breath, and/or dizziness please follow up with your PCP. Special Instructions: Please follow up with Dr. Shahid (heat treating bluer) within one week to recheck your blood pressure and titrate your medications accordingly. Please continue your other home medications as required. Please follow up with your PCP. Activity Full Activity/No Limits: No Activity Self Limited: Yes Acute Coronary Syndrome Inclusion Criteria At DC or during hospital stay patient has or had the following: ACS DIAGNOSIS No Discharge Core Measures Meds if any: Prescribed or Continued at Discharge Meds if any: NOT Prescribed or Continued at Discharge Congestive Heart Failure Inclusion Criteria At DC or during hospital stay patient has or had the following: CHF DIAGNOSIS No Discharge Core Measures Meds if any: Prescribed or Continued at Discharge Meds if any: NOT Prescribed or Continued at Discharge Cerebrovascular accident Inclusion Criteria At DC or during hospital stay patient has or had the following: CVA/TIA Diagnosis No Discharge Core Measures Meds if any: Prescribed or Continued at Discharge Meds if any: NOT Prescribed or Continued at Discharge Venous thromboembolism Inclusion Criteria VTE Diagnosis No VTE Type NONE VTE Confirmed by (Test) NONE Discharge Core Measures - Per Current guidelines, there needs to be overlap - treatment for the first 5 days of Warfarin therapy. - If discharged on Warfarin prior to 5 days of - overlap therapy, the patient will need to be - assessed for post discharge needs including - *Post discharge parental anticoagulation - *Warfarin and/or parental anticoagulation education - *Follow up date to check INR post discharge At least 5 days overlap therapy as Inpatient No Meds if any: Prescribed or Continued at Discharge Note: Overlap Therapy is Warfarin and Anticoagulant Meds if any: NOT Prescribed or Continued at Discharge
== END 2018-04-19 18:30 ==
LOC: ERH 09:15 → ERHI 13:28 → ENRESERV 14:29 → ENTRNSPT 16:03 → EDTRNSPTSTS 16:05 → 1NO 16:25 → CMPTRNSPT 16:40 → 1NO 04-19 18:30
PROVIDERS: Physician Assistant Medical; Preventive Medicine Public Health & General Preventive Medicine
DX: R07.89 Other chest pain (principal); E78.00 Pure hypercholesterolemia, unspecified; J44.9 Chronic obstructive pulmonary disease, unspecified; E03.9 Hypothyroidism, unspecified; J45.909 Unspecified asthma, uncomplicated; Z96.653 Presence of artificial knee joint, bilateral; Z85.3 Personal history of malignant neoplasm of breast; Z79.82 Long term (current) use of aspirin; Z79.51 Long term (current) use of inhaled steroids; I16.0 Hypertensive urgency; I35.0 Nonrheumatic aortic (valve) stenosis; R01.1 Cardiac murmur, unspecified
CPT/HCPCS: 36592; 71046; 82436; 93005; 93010; 93306; 96372; 96374; 96375; 99291; G0378; J0131; J0360; J1650; J3490